=== PATIENT | male | born 1990 | race African-American/Black ===

== ENCOUNTER 2017-06-07 06:01 | Emergency (ER) | payer OTHER ==
[~2017-06-07] VITALS: Ht 190.5 cm; Wt 80.0 kg
[~2017-06-07 06:01] MED LIST: IBUP800T23 PO
[2017-06-07 06:04] VITALS: RESP 16
[2017-06-07 06:13] VITALS: BP 134/86; PULSE 86; RESP 16; O2SAT 100
--- NOTE | 2017-06-07 06:41 | RADRPT ---
EXAM DATE/TIME: 06/07/2017 06:34 [facility] COMPARISON: No previous studies available for comparison. INDICATIONS : Chest pain MEDICAL HISTORY : None. SURGICAL HISTORY : None. ENCOUNTER: Initial ACUITY: 1 day PAIN SCORE: 7/10 LOCATION: Bilateral chest FINDINGS: A single view of the chest demonstrates the lungs to be symmetrically aerated without evidence of mas s, infiltrate or effusion. The cardiomediastinal contours are unremarkable. Osseous structures are intact. CONCLUSION: No acute disease. Bay Mercado MD on June 07, 2017 at 6:39 Board Certified Radiologist. This report was verified electronically.
[2017-06-07 06:48] VITALS: O2SAT 100
[2017-06-07 06:49] LABS: AUTOMATED NEUTROPHIL # 9.8 TH/MM3 (1.8-7.7); BASOPHIL # 0.1 TH/MM3 (0-0.2); BASOPHIL % 0.4 % (0.0-2.0); EOSINOPHIL # 0.2 TH/MM3 (0-0.4); EOSINOPHIL % 1.9 % (0.0-4.0); HEMATOCRIT 43.2 % (39.0-51.0); HEMO FLAGS DIFF FINAL; LYMPHOCYTE # 1.8 TH/MM3 (1.0-4.8); MEAN CELL VOLUME 101.3 FL (80.0-100.0); MEAN CORPUSCULAR HEMOGLOBIN 34.3 PG (27.0-34.0); MEAN CORPUSCULAR HGB CONC 33.9 % (32.0-36.0); MONO % 8.1 % (0.0-8.0); NEUT % 75.6 % (16.0-70.0); PLATELET COUNT 197 TH/MM3 (150-450); RED BLOOD COUNT 4.27 MIL/MM3 (4.50-5.90); RED CELL DISTRIBUTION WIDTH 12.8 % (11.6-17.2)
[2017-06-07 06:54] LABS: APTT (PATIENT) 26.9 SEC (24.3-30.1); PROTHROMBIN TIME - PATIENT 11.4 SEC (9.8-11.6)
--- NOTE | 2017-06-07 07:06 | PD ---
HPI Chief Complaint: Suicide Ideation/Attempt Time Seen by Provider: 06:16 Travel History International Travel<30 days: No Contact w/Intl Traveler<30days: No Traveled to known affect area: No History of Present Illness HPI The patient is a 26 year old male who presents to the [facility] emergency department with a history of reported difficulty with mood swings and depression due to recent life stressors. He denies any prior history of being diagnosed with depression or psychiatric disorder. He denies being on psychiatric medications in the past. The patient reports that he became angry and agitated prior to arrival and attempted to hang himself with a belt. The patient reports that he pushed himself off of the chair and his girlfriend heard the chair fall. She ran into the room and loosen the belt immediately. The patient reports that he felt lightheaded. He reports having a bitemporal headache. He reports that he has tingling sensations in the left arm. He reports that he did land on his left side when he was brought to the ground. On review of systems otherwise, the patient denies having any posterior neck pain. He denies having any weakness of his extremities. He denies having any chest pain, chest pressure, shortness of breath, abdominal pain, urinary symptoms, or other neurologic symptoms.The patient reports that his tetanus was last updated 2 years ago. [facility] Past Medical History Narrative Medical The patient's past medical history is significant for scoliosis, right knee pain related to a meniscus tear. Diminished Hearing: No Musculoskeletal: Yes (SCOLIOSIS) Tetanus Vaccination: < 5 Years Past Surgical History Narrative Surgical The patient has a past surgical history of right knee surgery. Social History Alcohol Use: Yes (OCCASIONALLY) Tobacco Use: Yes (4-5 CIGARETTES/DAY) Substance Use: No Allergies-Medications (Allergen,Severity, Reaction): Uncoded Allergies: POLLEN (Allergy, Unknown, 06/07/17) Reported Meds & Prescriptions Reported Meds & Active Scripts Active No Active Prescriptions or Reported Medications Review of Systems Except as stated in HPI: all other systems reviewed are Neg General / Constitutional: No: Fever Eyes: No: Visual changes HENT: Positive: Headaches, Neck Pain (anterior neck pain), No: Neck Stiffness Cardiovascular: No: Chest Pain or Discomfort, Dyspnea on exertion Respiratory: No: Shortness of Breath Gastrointestinal: No: Abdominal Pain Genitourinary: No: Dysuria Musculoskeletal: No: Pain Skin: No Rash Neurologic: Positive: Headache, Paresthesia (tingling sensations in the left arm), No: Weakness, Focal Abnormalities, Change in Mentation, Slurred Speech, Sensory Disturbance Psychiatric: No: Depression Endocrine: No: Polydipsia Hematologic/Lymphatic: No: Easy Bruising Physical Exam Narrative General: The patient is a well-developed well-nourished male in no acute distress. Head and Neck exam: Head is normocephalic atraumatic. Eyes: EOMI, pupils are equal round and reactive to light. Nose: Midline septum with pink mucous membranes Mouth: Dentition unremarkable. Moist mucus membranes. Posterior oropharynx is not erythematous. No tonsillar hypertrophy. Uvula midline. Airway patent. Neck: No palpable lymphadenopathy. No nuchal rigidity. No thyromegaly. No spinous process tenderness to palpation. No step-off or crepitus, no erythema or ecchymosis posteriorly, however on bilateral sides of the neck patient is noted to have superficial abrasions. The patient is noted to have tenderness on palpation along the left anterior neck overlying the carotid, however there is no carotid bruit audible. No expanding hematoma. Cardiovascular: Regular rate and rhythm without murmurs, gallops, or rubs. Lungs: Clear to auscultation bilaterally. No wheezes, rhonchi, or rales. Abdomen: Soft, without tenderness to palpation in all 4 quadrants of the abdomen. No guarding, rebound, or rigidity. Normal bowel sounds are audible. No tenderness on palpation of McBurney's point. Extremities: No clubbing, cyanosis, or edema. 2+ pulses in all 4 extremities. No calf tenderness on palpation. Back: No spinous process tenderness to palpation. No costovertebral angle tenderness to palpation. Neurologic Exam: Cranial nerves 2-12 were intact on exam. Strength is 5/5 in all 4 extremities. The patient reports having tingling sensations in the left arm compared to the right on sensory testing. The patient has intact sensation over all dermatomes otherwise noted on exam. Skin Exam: No rash noted. Data Data Last Documented VS Vital Signs Date Time Temp Pulse Resp B/P (MAP) Pulse Ox O2 Delivery O2 Flow Rate FiO2 06/07/17 06:48 100 Room Air 06/07/17 06:13 86 16 Orders Orders Complete Blood Count With Diff (06/07/17 06:16) Comprehensive Metabolic Panel (06/07/17 06:16) Prothrombin Time / Inr (Pt) (06/07/17 06:16) Act Partial Throm Time (Ptt) (06/07/17 06:16) Urinalysis - C+S If Indicated (06/07/17 06:16) Chest, Single Ap (06/07/17 06:16) Ct Brain W/O Iv Contrast(Rout) (06/07/17 06:16) Iv Access Insert/Monitor (06/07/17 06:16) Ecg Monitoring (06/07/17 06:16) Oximetry (06/07/17 06:16) Drug Screen, Random Urine (06/07/17 06:16) Alcohol (Ethanol) (06/07/17 06:16) Salicylates (Aspirin) (06/07/17 06:16) Tylenol (Acetaminophen) (06/07/17 06:16) Ct Cerv Spine W/O Contrast (06/07/17 ) Cta Neck W Iv Contrast W 3d (06/07/17 ) Labs Laboratory Tests Test 06/07/17 06:25 White Blood Count 13.0 TH/MM3 Red Blood Count 4.27 MIL/MM3 Hemoglobin 14.6 GM/DL Hematocrit 43.2 % Mean Corpuscular Volume 101.3 FL Mean Corpuscular Hemoglobin 34.3 PG Mean Corpuscular Hemoglobin Concent 33.9 % Red Cell Distribution Width 12.8 % Platelet Count 197 TH/MM3 Mean Platelet Volume 8.2 FL Neutrophils (%) (Auto) 75.6 % Lymphocytes (%) (Auto) 14.0 % Monocytes (%) (Auto) 8.1 % Eosinophils (%) (Auto) 1.9 % Basophils (%) (Auto) 0.4 % Neutrophils # (Auto) 9.8 TH/MM3 Lymphocytes # (Auto) 1.8 TH/MM3 Monocytes # (Auto) 1.1 TH/MM3 Eosinophils # (Auto) 0.2 TH/MM3 Basophils # (Auto) 0.1 TH/MM3 CBC Comment DIFF FINAL Differential Comment Prothrombin Time 11.4 SEC Prothromb Time International Ratio 1.0 RATIO Activated Partial Thromboplast Time 26.9 SEC MDM Medical Decision Making Medical Screen Exam Complete: Yes Emergency Medical Condition: Yes Medical Record Reviewed: Yes Differential Diagnosis Cervical artery dissection, versus cervical spine trauma, versus abrasions Narrative Course During the course of the patients emergency department visit, the patients history, examination, and differential diagnosis were reviewed with the patient. The patient had IV access obtained and blood work sent for analysis. The patient was Harrell acted prior to arrival. The Harrell act was reviewed. The patient had a CT scan of the head, neck, CTA of the neck ordered. The patients laboratory studies were reviewed and remarkable for white count of 13, hemoglobin 14.6, platelets 197 with 75.6 neutrophils CMP is pending, PT 11.4 , PTT 26.9. Radiology studies are pending at the conclusion of my shift. The patient was given Ancef 2 g IV for prophylaxis of his wounds. The patient' s case will be checked out to the oncoming emergency physician to disposition the patient based on the conclusion of this workup. If his imaging studies are negative for acute trauma the patient will require a psychiatric evaluation under a Harrell act. Diagnosis Primary Impression: Hanging Qualified Codes: T71.164A - Asphyxiation due to hanging, undetermined, initial encounter Additional Impression: Depression with suicidal ideation Scripts No Active Prescriptions or Reported Meds Sary Jacobo MD Jun 07, 2017 07:06
[2017-06-07] MEDS ORDERED: SODIUM CHLORID 0.9% 500 ML INJ 500 ML IV ONE (07:15)
[2017-06-07] MEDS ORDERED: ceFAZolin 2 GM PREMIX 50 ML IV ONE (07:15)
[2017-06-07 07:18] LABS: ANION GAP 10 MEQ/L (5-15); AST (GOT) 20 U/L (15-37); BICARBONATE 23.1 MEQ/L (21.0-32.0); BLOOD UREA NITROGEN 13 MG/DL (7-18); CHLORIDE 106 MEQ/L (98-107); GLOMERULAR FILTRATION RATE 120 ML/MIN (>89); POTASSIUM 3.6 MEQ/L (3.5-5.1); SODIUM (NA) 139 MEQ/L (136-145)
[2017-06-07 07:21] LABS: ALKALINE PHOSPHATASE 70 U/L (45-117); ALT (GPT) 18 U/L (12-78); TOTAL BILIRUBIN ADULT 0.9 MG/DL (0.2-1.0)
[2017-06-07] MEDS ORDERED: IOHEXOL 350 MG/ML 10 ML VIAL (for RAD DIAG) IVCONTRAST ONE (07:22)
--- NOTE | 2017-06-07 07:27 | RADRPT ---
EXAM DATE/TIME: 06/07/2017 07:01 [facility] COMPARISON: No previous studies available for comparison. INDICATIONS : Attempted hanging, abrasions to neck, headache RADIATION DOSE: 56.35 CTDIvol (mGy) MEDICAL HISTORY : None SURGICAL HISTORY : None. ENCOUNTER: Initial ACUITY: 1 day PAIN SCALE: 5/10 LOCATION: cranial TECHNIQUE: Multiple contiguous axial images were obtained of the head. Using automated exposure control and adj ustment of the mA and/or kV according to patient size, radiation dose was kept as low as reasonably a chievable to obtain optimal diagnostic quality images. DICOM format image data is available electro nically for review and comparison. FINDINGS: CEREBRUM: The ventricles are normal. No evidence of midline shift, mass lesion, hemorrhage or acute infarction . No extra-axial fluid collections are seen. POSTERIOR FOSSA: The cerebellum and brainstem are intact. The 4th ventricle is midline. The cerebellopontine angle i s unremarkable. EXTRACRANIAL: Visualized sinuses are clear. SKULL: The calvaria is intact. No evidence of skull fracture. CONCLUSION: No acute intracranial abnormality is identified. Bay Aden MD on June 07, 2017 at 7:24 Board Certified Radiologist. This report was verified electronically.
[2017-06-07 07:30] LABS: ACETAMINOPHEN LESS THAN 2.0 MCG/ML (10.0-30.0); ALCOHOL 23 MG/DL (0-5)
--- NOTE | 2017-06-07 07:32 | PD ---
Physical Exam Date Seen by Provider: Jun 07, 2017 Data Data Last Documented VS Vital Signs Date Time Temp Pulse Resp B/P (MAP) Pulse Ox O2 Delivery O2 Flow Rate FiO2 06/07/17 06:48 100 Room Air 06/07/17 06:13 86 16 Orders Orders Complete Blood Count With Diff (06/07/17 06:16) Comprehensive Metabolic Panel (06/07/17 06:16) Prothrombin Time / Inr (Pt) (06/07/17 06:16) Act Partial Throm Time (Ptt) (06/07/17 06:16) Urinalysis - C+S If Indicated (06/07/17 06:16) Chest, Single Ap (06/07/17 06:16) Ct Brain W/O Iv Contrast(Rout) (06/07/17 06:16) Iv Access Insert/Monitor (06/07/17 06:16) Ecg Monitoring (06/07/17 06:16) Oximetry (06/07/17 06:16) Drug Screen, Random Urine (06/07/17 06:16) Alcohol (Ethanol) (06/07/17 06:16) Salicylates (Aspirin) (06/07/17 06:16) Tylenol (Acetaminophen) (06/07/17 06:16) Ct Cerv Spine W/O Contrast (06/07/17 ) Cta Neck W Iv Contrast W 3d (06/07/17 ) Cefazolin 2 Gm Premix (Ancef 2 Gm Premix (06/07/17 07:15) Sodium Chlorid 0.9% 500 Ml Inj (Ns 500 M (06/07/17 07:15) Iohexol 350 Inj (Omnipaque 350 Inj) (06/07/17 07:22) Labs Laboratory Tests Test 06/07/17 06:25 White Blood Count 13.0 TH/MM3 Red Blood Count 4.27 MIL/MM3 Hemoglobin 14.6 GM/DL Hematocrit 43.2 % Mean Corpuscular Volume 101.3 FL Mean Corpuscular Hemoglobin 34.3 PG Mean Corpuscular Hemoglobin Concent 33.9 % Red Cell Distribution Width 12.8 % Platelet Count 197 TH/MM3 Mean Platelet Volume 8.2 FL Neutrophils (%) (Auto) 75.6 % Lymphocytes (%) (Auto) 14.0 % Monocytes (%) (Auto) 8.1 % Eosinophils (%) (Auto) 1.9 % Basophils (%) (Auto) 0.4 % Neutrophils # (Auto) 9.8 TH/MM3 Lymphocytes # (Auto) 1.8 TH/MM3 Monocytes # (Auto) 1.1 TH/MM3 Eosinophils # (Auto) 0.2 TH/MM3 Basophils # (Auto) 0.1 TH/MM3 CBC Comment DIFF FINAL Differential Comment Prothrombin Time 11.4 SEC Prothromb Time International Ratio 1.0 RATIO Activated Partial Thromboplast Time 26.9 SEC Blood Urea Nitrogen 13 MG/DL Creatinine 0.92 MG/DL Random Glucose 76 MG/DL Total Protein 7.5 GM/DL Albumin 4.2 GM/DL Calcium Level 9.1 MG/DL Alkaline Phosphatase 70 U/L Aspartate Amino Transf (AST/SGOT) 20 U/L Alanine Aminotransferase (ALT/SGPT) 18 U/L Total Bilirubin 0.9 MG/DL Sodium Level 139 MEQ/L Potassium Level 3.6 MEQ/L Chloride Level 106 MEQ/L Carbon Dioxide Level 23.1 MEQ/L Anion Gap 10 MEQ/L Estimat Glomerular Filtration Rate 120 ML/MIN Salicylates Level 2.1 MG/DL Acetaminophen Level LESS THAN 2.0 MCG/ML Ethyl Alcohol Level 23 MG/DL [facility] Medical Record Reviewed: Yes Supervised Visit with ANGIE: No Interpretation(s) Vital Signs Date Time Temp Pulse Resp B/P (MAP) Pulse Ox O2 Delivery O2 Flow Rate FiO2 06/07/17 06:48 100 Room Air 06/07/17 06:13 86 16 134/86 (102) 100 Room Air 06/07/17 06:07 Room Air 06/07/17 06:04 16 Differential Diagnosis cervical artery dissection, depression, drug abuse, cervical fracture Narrative Course Patient signed out to me at change of shift, please see previous providers chart for full hpi and workup of patient. Patient currently pending CT's, labs work. He is under Harrell Act at this time. Patient is a 26-year-old male who presents to emergency room after he tried to hang himself last night in attempt to commit suicide. Patient reports that he was depressed, reports that he has had multiple life stressors, reports that he attempted to hang himself with a leather belt last night. Patients girlfriend heard a chair fall, went to patient's side and loosened the belt. Patient does have abrasions to his anterior neck, patient with no carotid artery bruits. Patient contracts for safety at this time. Lab work including CTs pending. Once medically cleared, plan to have patient be seen by psychiatric screeners. Laboratory Tests Test 06/07/17 06:25 White Blood Count 13.0 TH/MM3 (4.0-11.0) Red Blood Count 4.27 MIL/MM3 (4.50-5.90) Hemoglobin 14.6 GM/DL (13.0-17.0) Hematocrit 43.2 % (39.0-51.0) Mean Corpuscular Volume 101.3 FL (80.0-100.0) Mean Corpuscular Hemoglobin 34.3 PG (27.0-34.0) Mean Corpuscular Hemoglobin Concent 33.9 % (32.0-36.0) Red Cell Distribution Width 12.8 % (11.6-17.2) Platelet Count 197 TH/MM3 (150-450) Mean Platelet Volume 8.2 FL (7.0-11.0) Neutrophils (%) (Auto) 75.6 % (16.0-70.0) Lymphocytes (%) (Auto) 14.0 % (9.0-44.0) Monocytes (%) (Auto) 8.1 % (0.0-8.0) Eosinophils (%) (Auto) 1.9 % (0.0-4.0) Basophils (%) (Auto) 0.4 % (0.0-2.0) Neutrophils # (Auto) 9.8 TH/MM3 (1.8-7.7) Lymphocytes # (Auto) 1.8 TH/MM3 (1.0-4.8) Monocytes # (Auto) 1.1 TH/MM3 (0-0.9) Eosinophils # (Auto) 0.2 TH/MM3 (0-0.4) Basophils # (Auto) 0.1 TH/MM3 (0-0.2) CBC Comment DIFF FINAL Differential Comment Prothrombin Time 11.4 SEC (9.8-11.6) Prothromb Time International Ratio 1.0 RATIO Activated Partial Thromboplast Time 26.9 SEC (24.3-30.1) Blood Urea Nitrogen 13 MG/DL (7-18) Creatinine 0.92 MG/DL (0.60-1.30) Random Glucose 76 MG/DL (74-106) Total Protein 7.5 GM/DL (6.4-8.2) Albumin 4.2 GM/DL (3.4-5.0) Calcium Level 9.1 MG/DL (8.5-10.1) Alkaline Phosphatase 70 U/L (45-117) Aspartate Amino Transf (AST/SGOT) 20 U/L (15-37) Alanine Aminotransferase (ALT/SGPT) 18 U/L (12-78) Total Bilirubin 0.9 MG/DL (0.2-1.0) Sodium Level 139 MEQ/L (136-145) Potassium Level 3.6 MEQ/L (3.5-5.1) Chloride Level 106 MEQ/L (98-107) Carbon Dioxide Level 23.1 MEQ/L (21.0-32.0) Anion Gap 10 MEQ/L (5-15) Estimat Glomerular Filtration Rate 120 ML/MIN (>89) Salicylates Level 2.1 MG/DL (2.8-20.0) Acetaminophen Level LESS THAN 2.0 MCG/ML Ethyl Alcohol Level 23 MG/DL (0-5) Last Impressions Head CT 06/07/17615 Signed Impressions: Service Date/Time: Wednesday, June 07, 2017 07:01 - CONCLUSION: No acute intracranial abnormality is identified. Bay Aden MD Chest X-Ray 06/07/17615 Signed Impressions: Service Date/Time: Wednesday, June 07, 2017 06:34 - CONCLUSION: No acute disease. Bay Mercado MD CTA of neck: Normal carotid arteries CT of cervical spine: no fx or subluxation Diagnosis Primary Impression: Hanging Qualified Codes: T71.164A - Asphyxiation due to hanging, undetermined, initial encounter Additional Impression: Depression with suicidal ideation Scripts No Active Prescriptions or Reported Meds Catrina Dangelo DO Jun 07, 2017 07:32
--- NOTE | 2017-06-07 07:52 | RADRPT ---
EXAM DATE/TIME: 06/07/2017 07:04 [facility] COMPARISON: No previous studies available for comparison. INDICATIONS : Attempted hanging, abrasions to neck RADIATION DOSE: CTDIvol (mGy) ; Reconstructed from previous dataset, no dose MEDICAL HISTORY : None SURGICAL HISTORY : None. ENCOUNTER: Initial ACUITY: 1 day PAIN SCALE: 5/10 LOCATION: neck TECHNIQUE: Volumetric scanning of the cervical spine was performed. Multiplanar reconstructions in the sagittal, coronal and oblique axial planes were performed. Using automated exposure control and adjustment o f the mA and/or kV according to patient size, radiation dose was kept as low as reasonably achievable to obtain optimal diagnostic quality images. DICOM format image data is available electronically f or review and comparison. FINDINGS: VERTEBRAE: Normal vertebral body height. ALIGNMENT: No evidence of subluxation. C2-C3: The bony spinal canal is normal in size. No evidence of disc bulge or herniation. The neural forami na are bilaterally patent. C3-C4: The bony spinal canal is normal in size. No evidence of disc bulge or herniation. The neural forami na are bilaterally patent. C4-C5: The bony spinal canal is normal in size. No evidence of disc bulge or herniation. The neural forami na are bilaterally patent. C5-C6: The bony spinal canal is normal in size. No evidence of disc bulge or herniation. The neural forami na are bilaterally patent. C6-C7: The bony spinal canal is normal in size. No evidence of disc bulge or herniation. The neural forami na are bilaterally patent. C7-T1: The bony spinal canal is normal in size. No evidence of disc bulge or herniation. The neural forami na are bilaterally patent. CONCLUSION: No fracture or subluxation. Markus Bowie MD on June 07, 2017 at 7:49 Board Certified Radiologist. This report was verified electronically.
--- NOTE | 2017-06-07 07:54 | RADRPT ---
EXAM DATE/TIME: 06/07/2017 07:05 [facility] COMPARISON: No previous studies available for comparison. INDICATIONS : Attempted hanging, abrasions to neck IV CONTRAST: 100 cc Omnipaque 350 (iohexol) IV RADIATION DOSE: 16.15 CTDIvol (mGy) MEDICAL HISTORY : None SURGICAL HISTORY : Non-responsive. ENCOUNTER: Initial ACUITY: 1 day PAIN SCALE: 5/10 LOCATION: neck Elevated flow velocities and ICA/CCA ratios have been found to correlate with increased degrees of vessel stenosis, calculated as percentage of diameter relative to a normal segment of distal ICA/CCA. TECHNIQUE: Volumetric scanning was performed using a multirow detector CT scanner. The data was post processed with a variety of visualization algorithms including full-volume maximum intensity projection, multip lanar sliding thin-slab reformation, curved-planar reformation, and surface-rendering techniques. Us ing automated exposure control and adjustment of the mA and/or kV according to patient size, radiatio n dose was kept as low as reasonably achievable to obtain optimal diagnostic quality images. DICOM f ormat image data is available electronically for review and comparison. FINDINGS: AORTIC ARCH: There is a three-vessel origin of the great vessels from the aorta. No evidence of ostial narrowing. RIGHT CAROTID: The common carotid artery is intact. The carotid bulb has a normal configuration without ulceration o r narrowing. The internal carotid artery lumen is smooth without stenosis. The external carotid ladi ry is intact. LEFT CAROTID: The common carotid artery is intact. The carotid bulb has a normal configuration without ulceration or narrowing. The internal carotid artery lumen is smooth without stenosis. The external carotid ar cara is intact. VERTEBRALS: The vertebral arteries have a symmetric diameter. No stenotic lesions are seen. CONCLUSION: Normal carotid arteries. Markus Bowie MD on June 07, 2017 at 7:52 Board Certified Radiologist. This report was verified electronically.
--- NOTE | 2017-06-07 11:19 | PD ---
Physical Exam Date Seen by Provider: Jun 07, 2017 Time Seen by Provider: 11:18 Narrative 26 Y/O Male previously Harrell Acted and Medically Cleared with Suicidal Ideations has been evaluated and cleared by the Psychiatrist for Discharge with outpatient follow-up. Patient is medically stable for discharge. Please see Psychiatry note for Follow-up plan. Data Data Last Documented VS Vital Signs Date Time Temp Pulse Resp B/P (MAP) Pulse Ox O2 Delivery O2 Flow Rate FiO2 06/07/17 06:48 100 Room Air 06/07/17 06:13 86 16 Orders Orders Complete Blood Count With Diff (06/07/17 06:16) Comprehensive Metabolic Panel (06/07/17 06:16) Prothrombin Time / Inr (Pt) (06/07/17 06:16) Act Partial Throm Time (Ptt) (06/07/17 06:16) Urinalysis - C+S If Indicated (06/07/17 06:16) Chest, Single Ap (06/07/17 06:16) Ct Brain W/O Iv Contrast(Rout) (06/07/17 06:16) Iv Access Insert/Monitor (06/07/17 06:16) Ecg Monitoring (06/07/17 06:16) Oximetry (06/07/17 06:16) Drug Screen, Random Urine (06/07/17 06:16) Alcohol (Ethanol) (06/07/17 06:16) Salicylates (Aspirin) (06/07/17 06:16) Tylenol (Acetaminophen) (06/07/17 06:16) Ct Cerv Spine W/O Contrast (06/07/17 ) Cta Neck W Iv Contrast W 3d (06/07/17 ) Cefazolin 2 Gm Premix (Ancef 2 Gm Premix (06/07/17 07:15) Sodium Chlorid 0.9% 500 Ml Inj (Ns 500 M (06/07/17 07:15) Iohexol 350 Inj (Omnipaque 350 Inj) (06/07/17 07:22) Psych Screen (06/07/17 09:16) Labs Laboratory Tests Test 06/07/17 06:25 White Blood Count 13.0 TH/MM3 Red Blood Count 4.27 MIL/MM3 Hemoglobin 14.6 GM/DL Hematocrit 43.2 % Mean Corpuscular Volume 101.3 FL Mean Corpuscular Hemoglobin 34.3 PG Mean Corpuscular Hemoglobin Concent 33.9 % Red Cell Distribution Width 12.8 % Platelet Count 197 TH/MM3 Mean Platelet Volume 8.2 FL Neutrophils (%) (Auto) 75.6 % Lymphocytes (%) (Auto) 14.0 % Monocytes (%) (Auto) 8.1 % Eosinophils (%) (Auto) 1.9 % Basophils (%) (Auto) 0.4 % Neutrophils # (Auto) 9.8 TH/MM3 Lymphocytes # (Auto) 1.8 TH/MM3 Monocytes # (Auto) 1.1 TH/MM3 Eosinophils # (Auto) 0.2 TH/MM3 Basophils # (Auto) 0.1 TH/MM3 CBC Comment DIFF FINAL Differential Comment Prothrombin Time 11.4 SEC Prothromb Time International Ratio 1.0 RATIO Activated Partial Thromboplast Time 26.9 SEC Blood Urea Nitrogen 13 MG/DL Creatinine 0.92 MG/DL Random Glucose 76 MG/DL Total Protein 7.5 GM/DL Albumin 4.2 GM/DL Calcium Level 9.1 MG/DL Alkaline Phosphatase 70 U/L Aspartate Amino Transf (AST/SGOT) 20 U/L Alanine Aminotransferase (ALT/SGPT) 18 U/L Total Bilirubin 0.9 MG/DL Sodium Level 139 MEQ/L Potassium Level 3.6 MEQ/L Chloride Level 106 MEQ/L Carbon Dioxide Level 23.1 MEQ/L Anion Gap 10 MEQ/L Estimat Glomerular Filtration Rate 120 ML/MIN Salicylates Level 2.1 MG/DL Acetaminophen Level LESS THAN 2.0 MCG/ML Ethyl Alcohol Level 23 MG/DL [facility] Medical Record Reviewed: Yes Supervised Visit with ANGIE: Yes Narrative Course 26 Y/O Male previously Harrell Acted and Medically Cleared with Suicidal Ideations has been evaluated and cleared by the Psychiatrist for Discharge with outpatient follow-up. Patient is medically stable for discharge. Please see Psychiatry note for Follow-up plan. Diagnosis Primary Impression: Hanging Qualified Codes: T71.164A - Asphyxiation due to hanging, undetermined, initial encounter Additional Impression: Depression with suicidal ideation Patient Instructions: General Instructions Additional Instruction: 26 Y/O Male previously Harrell Acted and Medically Cleared with Suicidal Ideations has been evaluated and cleared by the Psychiatrist for Discharge with outpatient follow-up. Patient is medically stable for discharge. Please see Psychiatry note for Follow-up plan. Scripts No Active Prescriptions or Reported Meds Disposition: DISCHARGE HOME Condition: Stable [place] Jun 07, 2017 11:19
== END 2017-06-07 11:48 | disposition home or self-care (01) ==
LOC: NEPC 06:01
DX: T71.164A Asphyxiation due to hanging, undetermined, initial encounter (principal); F32.9 Major depressive disorder, single episode, unspecified; R45.851 Suicidal ideations; S10.81XA Abrasion of other specified part of neck, initial encounter; R51 Headache; R20.2 Paresthesia of skin; Z72.0 Tobacco use; Z87.39 Personal history of other diseases of the musculoskeletal system and connective tissue; X83.8XXA Intentional self-harm by other specified means, initial encounter
CPT/HCPCS: 70450; 70498; 71010; 72125; 80053; 80307; 85025; 85610; 85730; 96365; 99285; J0690; J7040; Q9967